=== PATIENT | female | born 1960 | race Caucasian/White ===

== ENCOUNTER 2018-11-01 13:10 | Outpatient (CLI) | payer OTHER ==
[~2018-11-01] VITALS: Ht 149.9 cm; Wt 74.8 kg
[2018-11-01 13:59] VITALS: BP 123/67
[2018-11-01] MEDS ORDERED: [UNRECOGNIZED DRUG - REMARK] (14:03)
--- NOTE | 2018-11-01 15:51 | GI Initial Consult Note ---
History of Present Illness General Date patient seen: Nov 01, 2018 Time patient seen: 15:48 Referring physician: HMO Reason for Consultation: COLONOSCOPY SCREENING Present Illness HPI 58-year-old female patient presents today for colonoscopy screening. The patient has no history of endoscopic or colonoscopy. The patient symptomatically has no GI issues; denies any abdominal pain, denies any nausea vomiting or diarrhea. Denies any past medical history. Denies any unintentional weight loss or changes in dietary habits. No signs of abuse or neglect. Patient is not fall risk. Home Meds Reported Medications [no medication take ] No Conflict Check 11/01/18 Med list reviewed/reconciled: Yes Allergies: Coded Allergies: No Known Allergies (Unverified , 11/01/18) Patient History Past Medical History: none Family History Narrative History of cholecystectomy History of right eye surgery Social History: Denies: smoking, alcohol use, drug use, other Review of Systems All Other Systems: negative except mentioned in HPI Physical Exam Vital Signs Date Time Temp Pulse Resp B/P (MAP) Pulse Ox O2 Delivery O2 Flow Rate FiO2 11/01/18 13:59 98.1 76 16 123/67 98 Sp02 EP Interpretation: reviewed, normal General Appearance: well appearing, no apparent distress, alert Head: normocephalic EENT: PERRL/EOMI, normal ENT inspection Neck: supple Respiratory: normal breath sounds, no respiratory distress Cardiovascular: normal rate Gastrointestinal: normal inspection, non tender, soft, normal bowel sounds, non -distended Rectal: deferred Genitourinary: no CVA tenderness Musculoskeletal: normal inspection, back normal Neurologic: normal inspection, alert, oriented x3, responsive Psychiatric: normal inspection, judgement/insight normal, memory normal Skin: normal inspection, normal color, no rash, warm/dry, palpation normal, well hydrated Lymphatic: normal inspection, no adenopathy GI: Plan Problems: (1) Colonoscopy planned Plan EGD/colonoscopy to be scheduled pending PA, will contact patient. - CLD & (Nulytely/Suprep/Movi-Prep) prep instructions given and acknowledged by patient. - NPO @ IN day prior procedure explained. Will follow with additional recs post procedure. Seen with Dr. Dupree. Thank you for this patient referral. The patient was seen and examined at bedside and all new and available data was reviewed in the patients chart. I agree with the above findings, impression and plan. (Patient seen earlier today. Signature stamp does not reflect patient encounter time.). - MD Kathy Prince AnhChacorta HICKMAN Nov 01, 2018 15:51
--- NOTE | 2018-11-01 15:53 | GI Progress Note ---
Assessment/Plan Problems: (1) Constipation ICD Codes: K59.00 - Constipation, unspecified SNOMED: 30695137 (2) Abdominal bloating ICD Codes: R14.0 - Abdominal distension (gaseous) SNOMED: 327247023 (3) Small intestinal bacterial overgrowth ICD Codes: K63.89 - Other specified diseases of intestine SNOMED: 929479496 Status: unchanged Status Narrative Seen with Dr. Dupree. Assessment/Plan Xifaxan given RTC x3 months The patient was seen and examined at bedside and all new and available data was reviewed in the patients chart. I agree with the above findings, impression and plan. (Patient seen earlier today. Signature stamp does not reflect patient encounter time.). - Andrew Dupree MD Subjective Subjective Patient denies any abdominal pain Denies any rectal bleeding Denies any diarrhea Has complaint of constipation and abdominal bloating Objective Last 24 Hour Vital Signs Date Time Temp Pulse Resp B/P (MAP) Pulse Ox O2 Delivery O2 Flow Rate FiO2 11/01/18 13:59 98.1 76 16 123/67 98 General Appearance: WD/WN, no apparent distress, alert Cardiovascular: normal rate Respiratory/Chest: normal breath sounds, no respiratory distress Abdominal Exam: normal bowel sounds, non tender, soft Extremities: normal range of motion, non-tender Fernando Chavez [employer]ER Nov 01, 2018 15:53
== END 2018-11-01 15:10 | disposition home or self-care (01) ==
LOC: PAN 13:10
DX: Z12.11 Encounter for screening for malignant neoplasm of colon (principal); K59.00 Constipation, unspecified; R14.0 Abdominal distension (gaseous); K63.89 Other specified diseases of intestine
CPT/HCPCS: 99201